=== PATIENT | male | born 1960 | race American Indian/Alaskan Native ===

== ENCOUNTER 2019-01-19 09:16 | Outpatient (CLI) | payer BC ==
--- NOTE | 2019-01-19 12:33 | Ultrasound Report ---
ULTRASOUND ABDOMEN COMPLETE: TECHNIQUE: Transabdominal ultrasound with color Doppler interrogation. HISTORY: abdominal pain. COMPARISON: none. FINDINGS: LIVER: Within normal limits. A few scattered calcified granulomas are noted throughout the liver. BILIARY SYSTEM: Normal. No evidence for cholelithiasis or biliary dilatation. The CBD measures 2 mm. PANCREAS: Normal. SPLEEN: Normal. KIDNEYS: Normal. AORTA/IVC: Normal. ASCITES: None. IMPRESSION: Unremarkable exam.
== END 2019-01-19 09:17 | disposition home or self-care (01) ==
LOC: US 09:16
PROVIDERS: ATTEND Internal Medicine
DX: R10.11 Right upper quadrant pain (principal); I10 Essential (primary) hypertension
CPT/HCPCS: 76700